=== PATIENT | male | born 1945 | race Caucasian/White ===

== ENCOUNTER 2020-12-20 14:41 | Emergency (ER) | payer MEDICARE, OTHER ==
[2020-12-20 16:27] LABS: HEMOGLOBIN 9.7 gm/dl (14.0-17.5); RED BLOOD COUNT 2.62 M/UL (4.20-5.50); WHITE BLOOD COUNT 11.3 K/UL (4.5-11.0)
== END 2020-12-20 22:40 | disposition short-term general hospital (02) ==
LOC: ER1 14:41
PROVIDERS: Physician Assistant Medical
DX: F10.20 Alcohol dependence, uncomplicated (principal); R18.8 Other ascites; E78.5 Hyperlipidemia, unspecified; I10 Essential (primary) hypertension; K21.9 Gastro-esophageal reflux disease without esophagitis; K62.5 Hemorrhage of anus and rectum
CPT/HCPCS: 80053; 83605; 85025; 85610; 86850; 86900; 86901; 96374; 96375; 96376; 99285; C9113; J3411; J3475; J7030; Q9967